=== PATIENT | female | born 1985 | race Hispanic/Latino ===

== ENCOUNTER 2018-05-22 19:57 | Emergency (ER) | payer MEDICAID ==
[2018-05-22 20:08] VITALS: BP 136/86; RESP 15; TEMP 97.7; O2SAT 100
[2018-05-22] MEDS ORDERED: Sodium Chloride 0.9% 1,000 ML IV STA (20:54)
--- NOTE | 2018-05-22 21:12 | ED PDOC ---
HPI: General Adult Time Seen by Provider: 05/22/18 20:16 Chief Complaint (Nursing): Dizziness/Lightheaded History Per: Patient Additional Complaint(s): Pt. states since February 2018 she' shad intermittent dizziness that occurs mostly in the morning. Reports symptoms are associated with facial pain. Dizziness is worse with movement of eyes. Symptoms initially began when she had a cold but persisted. She was seen by her PMD, Dr. Claudio who then referred her to Dr. Brown (neurologist). She had a CT done in February which showed a benign cyst. As per pt. cyst did not require any intervention just f/u. She is scheduled to f/u with Dr. Gomez in a few weeks for a 2nd visit. Symptoms began to improve after visit with Dr. Gomez but then returned over the past 3 weeks. Also states that she has been evaluated by ENT in the past and was told that dizziness is not due to ENT etiology. Denies head injury, nasal congestion, fever, sore throat, chills. Past Medical History Reviewed: Historical Data, Nursing Documentation, Vital Signs Vital Signs: Last Vital Signs Temp 97.7 F 05/22/18 20:05 Pulse 96 H 05/22/18 20:05 Resp 15 05/22/18 20:05 BP 136/86 05/22/18 20:05 Pulse Ox 100 05/22/18 20:05 - Medical History PMH: Anxiety, Kidney Stones, Chronic Kidney Disease - Surgical History Surgical History: No Surg Hx - Family History Family History: States: No Known Family Hx - Allergies Allergies/Adverse Reactions: Allergies Allergy/AdvReac Type Severity Reaction Status Date / Time No Known Allergies Allergy Verified 05/22/18 20:08 Review of Systems ROS Statement: Except As Marked, All Systems Reviewed And Found Negative Neurological: Positive for: Dizziness Physical Exam - Physical Exam Appears: Positive for: Well, Non-toxic, No Acute Distress Head Exam: Positive for: ATRAUMATIC, NORMAL INSPECTION, NORMOCEPHALIC Skin: Positive for: Normal Color, Warm. Negative for: Rash Eye Exam: Positive for: Normal appearance, EOMI, PERRL. Negative for: Nystagmus ENT: Positive for: Normal ENT Inspection Cardiovascular/Chest: Positive for: Regular Rate, Rhythm. Negative for: Murmur Respiratory: Positive for: Normal Breath Sounds. Negative for: Respiratory Distress Gastrointestinal/Abdominal: Positive for: Soft. Negative for: Tenderness Neurologic/Psych: Positive for: Alert, Oriented (x3), Gait (steady, unassisted). Negative for: Aphasia - ECG ECG: Positive for: Interpreted By Me ECG Rhythm: Positive for: Sinus Rhythm. Negative for: ST/T Changes Rate: 78 O2 Sat by Pulse Oximetry: 100 - Progress ED Course And Treament: Unable to obtain blood work. Pt. eventually refused. Seen eating pizza and in no distress. States she had blood work done 2 weeks ago which included her thyroid levels which were normal. States she prefers to f/u with Dr. Brown. Advised to f/u with Dr. Brown but is to return to ED immediately if symptoms worsen. Pt. verbalized correct understanding of care and f/u. Disposition - Clinical Impression Clinical Impression: Dizziness - Patient ED Disposition Is Patient to be Admitted: No - Disposition Referrals: [facility] [Outside] Disposition: Routine/Home Disposition Time: 22:08 Condition: STABLE Additional Instructions: FOLLOW UP WITH DR. BROWN WITHOUT FAIL FOR FURTHER EVALUATION RETURN TO ED IMMEDIATELY IF SYMPTOMS WORSEN ANGIE CHEN, thank you for letting us take care of you today. Your provider was Madie Zuniga MD and you were treated for DIFFICULTY BREATHING. The emergency medical care you received today was directed at your acute symptoms. If you were prescribed any medication, please fill it and take as directed. It may take several days for your symptoms to resolve. Return to the Emergency Department if your symptoms worsen, do not improve, or if you have any other problems. Please contact your doctor or call one of the physicians/clinics you have been referred to that are listed on the Patient Visit Information form that is included in your discharge packet. Bring any paperwork you were given at discharge with you along with any medications you are taking to your follow up visit. Our treatment cannot replace ongoing medical care by a primary care provider outside of the emergency department. Thank you for allowing the [facility] team to be part of your care today. If you had an X-Ray or CT scan: A Radiologist will review the ED reading if any change in treatment is needed we will contact you. If you had a blood, urine, or wound culture: It will take several days for the results, if any change in treatment is needed we will contact you. If you had an STI test: It will take 48 hours for the results. Please call after 1 week if you have not heard back. Instructions: Abril Gutierrez, (DC) Forms: [employer] ([place]), [facility] ED School/Work Excuse
[2018-05-22 22:04] LABS: SQUAMOUS EPITHIAL 24 /hpf (0-5); URINE AMORPHOUS SEDIMENT RARE /ul (<OCC); URINE BILIRUBIN NEGATIVE (NEGATIVE); URINE BLOOD LARGE (NEGATIVE); URINE CLARITY TURBID (Clear); URINE COLOR YELLOW (YELLOW); URINE GLUCOSE (UA) NEG (NEGATIVE); URINE LEUKOCYTE ESTERASE LARGE Leu/uL (Negative); URINE PROTEIN 100 mg/dL (NEGATIVE); URINE UROBILINOGEN 0.2-1.0 mg/dL (0.2-1.0)
[2018-05-22 22:08] VITALS: PULSE 78
--- NOTE | 2018-05-23 08:37 | CARD ---
APPROVED REPORT Date of service: 05/22/2018 EKG Measurement Heart [id number] <Conclusion> Normal sinus rhythm with sinus arrhythmia Normal ECG
== END 2018-05-22 22:40 | disposition home or self-care (01) ==
LOC: H.ER 19:57
DX: R42 Dizziness and giddiness (principal)